=== PATIENT | male | born 1955 | race Two or more races ===

== ENCOUNTER 2021-08-06 15:28 | Emergency (ER) | payer SELFPAY ==
[~2021-08-06] VITALS: Ht 185.4 cm; Wt 80.7 kg
[2021-08-06 15:44] VITALS: BP 115/68
[2021-08-06] MEDS ORDERED: HYDROcodone-ACET 5/325MG TAB PO ONE (16:30)
== END 2021-08-06 16:54 | disposition home or self-care (01) ==
LOC: EDBD 15:28 → ER 15:28
DX: S83.91XA Sprain of unspecified site of right knee, initial encounter (principal); M13.861 Other specified arthritis, right knee; F17.210 Nicotine dependence, cigarettes, uncomplicated; W19.XXXA Unspecified fall, initial encounter; Y93.89 Activity, other specified; Y92.89 Other specified places as the place of occurrence of the external cause; Y99.8 Other external cause status
CPT/HCPCS: 73562

== ENCOUNTER 2021-08-06 21:57 | Emergency (ER) | payer MEDICAID, OTHER ==
[~2021-08-06] VITALS: Ht 175.3 cm; Wt 77.1 kg
[2021-08-06 22:32] VITALS: BP 109/60
== END 2021-08-06 23:57 | disposition left against medical advice (07) ==
LOC: ER 21:58
DX: M17.11 Unilateral primary osteoarthritis, right knee (principal); F17.210 Nicotine dependence, cigarettes, uncomplicated

== ENCOUNTER → 2021-08-07 | Emergency (ER) | payer MEDICAID ==
[~2021-08-07] VITALS: Ht 170.2 cm; Wt 77.1 kg
[2021-08-07 03:52] VITALS: BP 113/73
== END | disposition left against medical advice (07) ==
LOC: EDUNIT# 03:29 → EDBD 03:48 → ER 03:48
DX: M25.561 Pain in right knee (principal); Z53.21 Procedure and treatment not carried out due to patient leaving prior to being seen by health care provider

== ENCOUNTER 2021-08-10 21:31 | Emergency (ER) | payer MEDICAID ==
[~2021-08-10] VITALS: Ht 175.3 cm; Wt 80.7 kg
[2021-08-10 21:39] VITALS: BP 121/72
== END 2021-08-11 00:54 | disposition left against medical advice (07) ==
LOC: EDBD 21:31 → ER 21:31
DX: M25.562 Pain in left knee (principal); Z53.21 Procedure and treatment not carried out due to patient leaving prior to being seen by health care provider

== ENCOUNTER 2021-08-12 00:30 | Emergency (ER) | payer MEDICAID ==
[~2021-08-12] VITALS: Ht 175.3 cm; Wt 77.1 kg
[2021-08-12] MEDS ORDERED: HYDROcodone-ACET 5/325MG TAB PO ONE (07:30)
[2021-08-12 08:43] VITALS: BP 134/88
== END 2021-08-12 07:31 | disposition home or self-care (01) ==
LOC: ER 00:30 → EDBD 00:30 → ER 07:31
DX: M25.561 Pain in right knee (principal); F17.210 Nicotine dependence, cigarettes, uncomplicated; Z59.00 Homelessness unspecified

== ENCOUNTER 2021-08-23 23:10 | Emergency (ER) | payer MEDICAID ==
[~2021-08-23] VITALS: Ht 177.8 cm; Wt 68.0 kg
[2021-08-24 05:52] VITALS: BP 130/88
[2021-08-24] MEDS ORDERED: HYDROcodone-ACET 5/325MG TAB PO ONE (06:00)
== END 2021-08-24 06:29 | disposition home or self-care (01) ==
LOC: ER 23:10 → EDBD 23:10 → ER 08-24 06:29
DX: S83.91XA Sprain of unspecified site of right knee, initial encounter (principal); M13.861 Other specified arthritis, right knee; F17.210 Nicotine dependence, cigarettes, uncomplicated; Z59.00 Homelessness unspecified; X58.XXXA Exposure to other specified factors, initial encounter; Y93.9 Activity, unspecified; Y92.89 Other specified places as the place of occurrence of the external cause; Y99.8 Other external cause status

== ENCOUNTER 2021-08-27 23:38 | Emergency (ER) | payer MEDICAID ==
[~2021-08-27] VITALS: Ht 177.8 cm; Wt 72.6 kg
[2021-08-28] MEDS ORDERED: ACETAMINOPHEN 500 MG TAB PO ONE (04:45)
[2021-08-28 05:12] VITALS: BP 121/67
== END 2021-08-28 05:41 | disposition left against medical advice (07) ==
LOC: ER 23:38 → EDBD 23:38 → ER 08-28 05:41
DX: M79.89 Other specified soft tissue disorders (principal); Z53.29 Procedure and treatment not carried out because of patient's decision for other reasons